=== PATIENT | male | born 1970 | race Caucasian/White ===

== ENCOUNTER 2016-12-18 09:34 | Emergency (ER) | payer OTHER ==
[~2016-12-18] VITALS: Ht 177.8 cm; Wt 97.3 kg
[~2016-12-18 09:34] MED LIST: ALBUAER19 INH; FLVHFA110 INH; HYDR1TAB2 PO
[2016-12-18 09:37] VITALS: TEMP 37; Ht 177.8 cm; Wt 97.3 kg
[2016-12-18] MEDS ORDERED: CITA20TA4 PO (10:01)
[2016-12-18] MEDS ORDERED: VNTHFA/IN INH (10:01)
[2016-12-18] MEDS ORDERED: MOME220A PO (10:01)
--- NOTE | 2016-12-18 10:25 | DIAGNOSTIC IMAGING REPORT ---
CT HEAD WITHOUT CONTRAST (CT) CLINICAL HISTORY: Head pain status post head trauma PATIENT FEELS BOGGY COMPARISON STUDY: No previous studies for comparison. TECHNIQUE: Axial CT of the brain is performed from the vertex to the skull base. IV contrast was not administered for this examination. A dose lowering technique was utilized adhering to the principles of ALARA. CT DOSE: 537.48 mGy.cm FINDINGS: No intra or extra-axial mass lesions are visualized. There is no CT evidence of acute cortical infarction. There is no evidence of midline shift. There is no acute hemorrhage. No calvarial fractures are visualized. There is no evidence of pathologic ventricular dilatation. There is no evidence of acute sinusitis IMPRESSION: No acute intracranial findings Electronically signed by: Andrei Kuhn M.D. 12/18/2016 10:24 AM Dictated Date/Time: 12/18/2016 10:23 AM
--- NOTE | 2016-12-18 10:38 | EMERGENCY ROOM VISIT NOTE ---
History First contact with patient: 09:40 Chief Complaint: HEAD INJURY (MINOR) Stated Complaint: CONCUSSION SYMPTOMS/WC History of Present Illness The patient is a 46 year old male who presents to the Emergency Room via private vehicle referred by [employer] with complaints of Review of Systems A complete 10-point Review of Systems was discussed with the patient, with pertinent positives and negatives listed in the History of Present Illness. All remaining Review of Systems questions can be considered negative unless otherwise specified. Past Medical/Surgical History Medical Problems: (1) Arm surgery (2) Asthma (3) Bronchitis (4) Cholecystectomy (5) Pneumonia Family History Diabetes, heart disease, high blood pressure, cancer. Social History Smoking Status: Never Smoker Alcohol Use: occasionally Drug Use: none Occupation Status: employed Current/Historical Medications Scheduled Albuterol Hfa (Ventolin Hfa), 2 PUFFS INH Q6H Citalopram Hydrobromide (Citalopram Hydrobromide), Unknown Dose PO DAILY Mometasone Furoate (Inhalation (Asmanex Twisthaler 120 Me), 2 PUFFS PO BID Physical Exam Vital Signs Date Time Temp Pulse Resp B/P (MAP) Pulse Ox O2 Delivery O2 Flow Rate FiO2 12/18/16 10:54 69 17 128/82 95 Room Air 12/18/16 09:37 37.0 84 18 170/98 96 Room Air Physical Exam VITAL SIGNS - Vital signs and nursing notes were reviewed. Stable. Hypertensive. GENERAL -46-year-old male appearing his stated age who is in no acute distress. Communicates well with provider and answers questions appropriately. SKIN - Without rashes. No petechial rashes. HEAD - NC/AT. No chávez signs or raccoons eyes. EYES - PERRL with EOMI bilaterally. Sclera anicteric. No hyphema. EARS - No deformities of external structures noted on gross examination bilaterally. No hemotympanum. NOSE - Midline and without cyanosis. No epistaxis or purulent drainage noted. Septum midline without deviation or septal hematoma noted. MOUTH/OROPHARYNX - Without perioral cyanosis. Buccal mucosa pink and moist and without leukoplakia. Tongue midline with equal elevation of palate bilaterally. No tonsillar hypertrophy, erythema, or exudates noted. Fair dentition noted. NECK - Neck with FROM. No C-spine tenderness. LUNGS - Chest wall symmetric without accessory muscle use, intercostals retractions, or central cyanosis. Normal vesicular breath sounds CTA B/L. No wheezes, rales, or rhonchi appreciated. CARDIAC - RRR with S1/S2. No murmur, rubs, or gallops appreciated. ABDOMEN - Abdominal contour normal without pulsations or visible masses. BS normoactive all four quadrants. No tenderness to the abdomen, or posterior chest or back. EXTREMITIES - No clubbing or peripheral cyanosis. No pretibial edema present. +5 /5 strength noted in UE/LE bilaterally. NEUROLOGIC - Cranial nerves II through XII grossly intact. Sensory intact to light touch throughout. PSYCH - A&O, and cooperates fully with examiner. Pt is very pleasant and interacts well with examiner. Medical Decision & Procedures ER Provider Diagnostic Interpretation: CT HEAD WITHOUT CONTRAST (CT) CLINICAL HISTORY: Head pain status post head trauma PATIENT FEELS BOGGY COMPARISON STUDY: No previous studies for comparison. TECHNIQUE: Axial CT of the brain is performed from the vertex to the skull base. IV contrast was not administered for this examination. A dose lowering technique was utilized adhering to the principles of ALARA. CT DOSE: 537.48 mGy.cm FINDINGS: No intra or extra-axial mass lesions are visualized. There is no CT evidence of acute cortical infarction. There is no evidence of midline shift. There is no acute hemorrhage. No calvarial fractures are visualized. There is no evidence of pathologic ventricular dilatation. There is no evidence of acute sinusitis IMPRESSION: No acute intracranial findings Electronically signed by: Andrei Kuhn M.D. 12/18/2016 10:24 AM Dictated Date/Time: 12/18/2016 10:23 AM Medical Decision Patient was seen and evaluated as above. He presents to us today status post head injury at work. He was seen by [employer], who referred him here for a CT of the head. He certainly is exhibiting subjective history concerning that for a concussion. Benefits versus risk of obtaining CT was discussed. Decision was made scan. Results as above. No acute intracranial pathology. Again I suspect concussion. He was not tender anywhere on exam. He appears stable for outpatient management. He was educated upon management, educated on worrisome symptoms which to return, had questions prior to discharge, and was discharged home in condition. In the evaluation and treatment of this patient, the following differential diagnoses were considered: Concussion, Contrecoup Injury, Brain Tumor, Depression, Encephalitis, Hypothyroidism, Meningitis, CVA, TIA, Migraine, Cluster Headache, Intracranial Abnormality, Intracranial Hemorrhage, Subdural Hematoma, Subarachnoid Hemorrhage, Hydrocephalus. Impression Primary Impression: Fall Additional Impressions: Closed head injury Concussion Departure Information Dispostion Home / Self-Care Condition GOOD Referrals Link Michel Jr,D.O. (PCP) Patient Instructions Concussion Dc, ED Concussion, My [facility] Additional Instructions You have been treated in the Emergency Department for a Closed Head Injury. CT Scan of your head/brain demonstrated no acute bleeding or other abnormalities. This does not completely rule out the risk for future damage to the brain. For pain control, you can use the following [id number] medicines: - Regular strength (325mg/tab) Tylenol (acetaminophen) 2 tabs every 4-6 hours as needed. Do not exceed 12 tablets in a 24 hour period. Avoid taking more than 3 grams (3000 mg) of Tylenol per day. This includes any other sources of acetaminophen you may take on a regular basis. - Regular strength (200 mg/tab) Advil (ibuprofen) 1-2 tabs every 4-6 hours as needed. Do not exceed a dose of 3200 mg per day. You should relax in a quiet, dark place for the rest of the day. Avoid any possible triggers including: cigarette smoke, caffeine, nicotine, chocolate, wine, beer, loud noises or music, or bright lights. You should schedule a follow-up appointment in 2-3 days with your Primary Care Provider or established Neurologist for further evaluation and treatment of your Headache. Please follow up with a workman's comp individual. Return to the Emergency Department if your current symptoms worsen despite treatment course outlined above, or if you develop any of the following symptoms : intractable pain despite aforementioned treatment course, visual disturbances , loss of vision, unilateral weakness or facial drooping, slurring of speech, loss of coordination, or loss of consciousness. Problem Qualifiers
[2016-12-18 10:54] VITALS: BP 128/82; PULSE 69; O2SAT 95
== END 2016-12-18 10:55 | disposition home or self-care (01) ==
LOC: C.EDB 09:35
DX: S06.0X0A Concussion without loss of consciousness, initial encounter (principal); W19.XXXA Unspecified fall, initial encounter; J45.909 Unspecified asthma, uncomplicated

== ENCOUNTER → 2017-10-08 | Outpatient (CLI) | payer BC ==
[~2017-10-08] MED LIST changes: -ALBUAER19 INH; +CITA20TA4 PO; -FLVHFA110 INH; -HYDR1TAB2 PO; +MOME220A PO; +VNTHFA/IN INH
[2017-10-08 10:35] LABS: HEMOGLOBIN A1C 4.8 % (4.5-5.6)
== END | disposition home or self-care (01) ==
LOC: C.LABBC 07:37
DX: E78.5 Hyperlipidemia, unspecified (principal); R73.9 Hyperglycemia, unspecified